=== PATIENT | female | born 2000 | race Caucasian/White ===

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

== ENCOUNTER 2024-02-25 18:44 | Emergency (ER) | payer OTHER, SELFPAY ==
[2024-02-25 18:55] VITALS: BP 154/88; PULSE 85; RESP 20; TEMP 36.6; O2SAT 100; BMI 26.3
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
[2024-02-25 19:51] VITALS: BP 154/88; PULSE 85; RESP 20; TEMP 36.6; O2SAT 100
== END 2024-02-25 19:52 | disposition home or self-care (01) ==
PROVIDERS: Emergency Provider Nurse Practitioner Family
DX: S90.31XA Contusion of right foot, initial encounter (principal); M79.671 Pain in right foot; W50.0XXA Accidental hit or strike by another person, initial encounter
CPT/HCPCS: 73630; 99204; 99212; G0463